=== PATIENT | female | born 1975 | race Caucasian/White ===

== ENCOUNTER 2018-04-09 13:04 | Emergency (ER) | payer OTHER, MEDICAID ==
[~2018-04-09] VITALS: Ht 160 cm; Wt 74.5 kg
[2018-04-09 13:10] VITALS: BP 134/75
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
[2018-04-09] MEDS ORDERED: ALBUTEROL SULFATE/IPRATROPIU 3 ML SOL IH ONE (13:35)
[2018-04-09] MEDS ORDERED: cefTRIAXone 1,000 MG in LIDOCAINE 1% ***ER ONLY *** 2.1 ML IM ONE (13:35)
[2018-04-09] MEDS ORDERED: KETOROLAC 60 MG/2 ML VIAL IM ONE (13:35)
[2018-04-09] MEDS ORDERED: hydrOXYzine HCL 25 MG TAB PO ONE (13:35)
[2018-04-09] MEDS ORDERED: cefTRIAXone 1,000 MG VIAL ONE (14:09)
[2018-04-09] MEDS ORDERED: LIDOCAINE MPF 1% 5mL VIAL ONE (14:10)
--- NOTE | 2018-04-09 14:10 | NUR ---
NO NEEDS STATED AT THIS TIME.
[2018-04-09 15:40] VITALS: BP 134/75
--- NOTE | 2018-04-09 15:41 | NUR ---
Patient discharged with v/s stable. Written and verbal after care instructions given and explained. Patient alert, oriented and verbalized understanding of instructions. Ambulatory with steady gait. All questions addressed prior to discharge. ID band removed. Patient advised to follow up with PMD. Rx of MOTRIN, TAMIFLU, PROMETHAZINE given. Patient educated on indication of medication including possible reaction and side effects. Opportunity to ask questions provided and answered.
== END 2018-04-09 15:41 | disposition home or self-care (01) ==
LOC: MED 13:04
DX: J10.1 Influenza due to other identified influenza virus with other respiratory manifestations (principal)
CPT/HCPCS: 81025; 87804; 94640; 96372; 99283; J0696; J1885; J2001; J7620; 36415

== ENCOUNTER 2019-09-05 07:03 | Emergency (ER) | payer OTHER, MEDICAID ==
[~2019-09-05] VITALS: Ht 160 cm; Wt 70.8 kg
[2019-09-05 07:09] VITALS: BP 157/98
[2019-09-05] MEDS ORDERED: KETOROLAC 60 MG/2 ML VIAL IM ONE (07:15)
--- NOTE | 2019-09-05 07:20 | NUR ---
44 Y/O FEMALE C/O HEADACHE THAT BEGAN LAST NIGHT, DENIES ANY CHANGES TO VISION, HEARING. DENIES ANY TRAUMA TO HEAD. PT STATES PAIN IS 10/10 HEADACHE THAT IN RADIATING TO ORBITAL AREA. DENIES N/V/D, SOB, COUGH, CHEST PAIN. NO PMH NKA
[2019-09-05 07:48] VITALS: BP 157/98
--- NOTE | 2019-09-05 07:48 | NUR ---
Patient discharged with v/s stable. Written and verbal after care instructions given and explained. Patient alert, oriented and verbalized understanding of instructions. Ambulatory with steady gait. All questions addressed prior to discharge. ID band removed. Patient advised to follow up with PMD. Rx of NORCO, MOTRIN given. Patient educated on indication of medication including possible reaction and side effects. Opportunity to ask questions provided and answered.
== END 2019-09-05 07:48 | disposition home or self-care (01) ==
LOC: MED 07:03
DX: R51 Headache (principal); R11.0 Nausea
CPT/HCPCS: 81002; 81025; 96372; 99283; J1885

== ENCOUNTER 2021-04-29 13:02 | Emergency (ER) | payer MEDICAID, OTHER ==
[~2021-04-29] VITALS: Ht 160 cm; Wt 68.5 kg
[2021-04-29 13:06] VITALS: BP 142/96
--- NOTE | 2021-04-29 13:11 | NUR ---
PT AMBULATED TO ER BED 3 WITH A STEADY GAIT.
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
--- NOTE | 2021-04-29 14:04 | NUR ---
PT TAKEN TO RAD VIA W/C
--- NOTE | 2021-04-29 14:16 | NUR ---
PT TAKEN TO ER BED 3 VIA W/C.
[2021-04-29] MEDS: KETOROLAC 30 MG/ML VIAL IM ONE (14:36)
[2021-04-29] MEDS ORDERED: NAPR-54 PO (14:41)
[2021-04-29] MEDS ORDERED: METH-1681 PO (14:41)
[2021-04-29 14:56] VITALS: BP 125/89
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
== END 2021-04-29 14:56 | disposition home or self-care (01) ==
LOC: MED 13:02
DX: S16.1XXA Strain of muscle, fascia and tendon at neck level, initial encounter (principal); R51.9 Headache, unspecified; V89.2XXA Person injured in unspecified motor-vehicle accident, traffic, initial encounter; Y93.89 Activity, other specified; Y92.89 Other specified places as the place of occurrence of the external cause; Y99.8 Other external cause status
CPT/HCPCS: 72050; 81002; 81025; 96372; 99283; J1885